=== PATIENT | male | born 1985 | race Asian ===

== ENCOUNTER 2019-01-25 19:53 | Outpatient (CLI) | payer OTHER | END 2019-01-25 19:54 | disposition critical access hospital (66) | LOC: EMS 19:53 | PROVIDERS: ATTEND Surgery | DX: M25.511 Pain in right shoulder (principal); R10.9 Unspecified abdominal pain; R09.89 Other specified symptoms and signs involving the circulatory and respiratory systems; V43.63XA Car passenger injured in collision with pick-up truck in traffic accident, initial encounter; Y92.410 Unspecified street and highway as the place of occurrence of the external cause | CPT/HCPCS: A0425; A0427 ==

== ENCOUNTER 2019-01-25 20:07 | Emergency (ER) | payer OTHER ==
[2019-01-25] MEDS ORDERED: fentaNYL 100 MCG/2 ML VIAL ONE (20:19)
[2019-01-25] MEDS ORDERED: HYDROmorphone 1 MG/ML CARPUJECT IVP STA ×3 (20:22→23:41)
[2019-01-25] MEDS ORDERED: fentaNYL 100 MCG/2 ML VIAL IVP STA ×2 (20:24→23:00)
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
[2019-01-25] MEDS ORDERED: IOVERSOL 320 100 ML VIAL IVP ONE ×2 (21:01→21:34)
[2019-01-25 21:04] LABS: BASOPHILS % (AUTO) 0.3 %; EOSINOPHILS # (AUTO) 0.1 10^3/uL (0.0-0.7); EOSINOPHILS % (AUTO) 0.7 %; HGB - HEMOGLOBIN 15.3 g/dL (14.0-18.0); LYMPHOCYTES # (AUTO) 1.7 10^3/uL (1.5-3.5); LYMPHOCYTES % (AUTO) 13.6 %; MEAN CORPUSCULAR HEMOGLOBIN 32.2 pg (27.0-31.0); MEAN CORPUSCULAR HGB CONC 34.4 g/dL (32.0-36.0); MEAN CORPUSCULAR VOLUME 93.7 fL (80.0-94.0); MONOCYTES # (AUTO) 0.4 10^3/uL (0.0-1.0); MONOCYTES % (AUTO) 3.3 %; NEUTROPHILS # (AUTO) 10.2 10^3/uL (1.5-6.6); NEUTROPHILS % (AUTO) 82.1 %; PLT - PLATELET COUNT 175 10^3/uL (130-450); RED BLOOD COUNT 4.75 10^6/uL (4.70-6.10); RED CELL DISTRIBUTION WIDTH 13.5 % (12.0-15.0); WHITE BLOOD COUNT 12.4 x10^3/uL (4.8-10.8)
[2019-01-25 21:08] LABS: INR 1.1 (0.8-1.2); PT - PROTHROMBIN TIME 12.3 secs (9.9-12.6)
[2019-01-25 21:15] LABS: ALBUMIN 4.8 g/dL (3.2-5.5); ALBUMIN/GLOBULIN RATIO 1.6 (1.0-2.2); ALKALINE PHOSPHATASE 56 IU/L (42-121); ALT ALANINE AMINOTRANSFERASE 170 IU/L (10-60); AST ASPARTATE AMINOTRANSFERASE 165 IU/L (10-42); BILIRUBIN,TOTAL 0.6 mg/dL (0.2-1.0); BUN - BLOOD UREA NITROGEN 21 mg/dL (6-20); CALCIUM 9.3 mg/dL (8.5-10.3); CARBON DIOXIDE - CO2 24 mmol/L (21-32); CHLORIDE 99 mmol/L (101-111); CREATININE 1.1 mg/dL (0.6-1.2); GFR - MDRD 78 (>89); GLUCOSE 129 mg/dL (70-100); LIPASE 40 U/L (22-51); PARTIAL THROMBOPLASTIN TIME 27.3 secs (24.9-33.3); SODIUM 136 mmol/L (135-145); TOTAL PROTEIN 7.8 g/dL (6.7-8.2)
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
[2019-01-25] MEDS ORDERED: KETAMINE 500 MG/10 ML VIAL ONE (21:50)
[2019-01-25] MEDS ORDERED: LIDOCAINE 1%-EPI 1:100000 30 ML MDV ONE (21:54)
[2019-01-25] MEDS ORDERED: KETAMINE 500 MG/10 ML VIAL IVP ONE (22:21)
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
[2019-01-25] MEDS ORDERED: HYDROmorphone 1 MG/ML CARPUJECT IM STA (23:00)
[2019-01-25] MEDS ORDERED: KETAMINE 500 MG/10 ML VIAL IVP STA (23:01)
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
[2019-01-25 23:37] VITALS: BP 131/81
[2019-01-25 23:57] LABS: MUDS CUTOFF CONCENTRATIONS CUTOFF CONC BELOW:
[2019-01-25] MEDS ORDERED: SODIUM CHLORIDE 0.9% 2,000 ML IV ONE (23:59)
[2019-01-26 00:02] LABS: BILIRUBIN,URINE NEGATIVE (NEGATIVE); GLUCOSE, URINE (UA) NEGATIVE (NEGATIVE); KETONES,URINE (UA) NEGATIVE (NEGATIVE); LEUKOCYTE ESTERASE, URINE NEGATIVE (NEGATIVE); NITRITE,URINE NEGATIVE (NEGATIVE); OCCULT BLOOD,URINE MODERATE (NEGATIVE); PH,URINE 5.5 PH (5.0-7.5); PROTEIN,URINE NEGATIVE (NEGATIVE); UROBILINOGEN,URINE 0.2 (NORMAL) E.U./dL (NORMAL)
[2019-01-26 00:27] LABS: CLARITY,URINE CLEAR (CLEAR)
[2019-01-26 00:28] LABS: AMPHETAMINE SCREEN,URINE NEGATIVE (NEGATIVE); BACTERIA,URINE None Seen /HPF (None Seen); BENZODIAZEPINES SCREEN, URINE NEGATIVE (NEGATIVE); COCAINE SCREEN URINE NEGATIVE (NEGATIVE); METHADONE SCREEN, URINE NEGATIVE (NEGATIVE); METHAMPHETAMINES SCREEN, URINE NEGATIVE (NEGATIVE); OPIATE SCREEN, URINE NEGATIVE (NEGATIVE); OXYCODONE SCREEN, URINE NEGATIVE (NEGATIVE); PROPOXYPHENE SCREEN, URINE NEGATIVE (NEGATIVE); SQUAMOUS EPITHELIAL CELL,UR RARE Squamous (<= Few); TRICYCLIC ANTIDEPRESSANT,URINE NEGATIVE (NEGATIVE)
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
== END 2019-01-26 00:17 | disposition short-term general hospital (02) ==
LOC: ED 20:07
DX: S27.0XXA Traumatic pneumothorax, initial encounter (principal); S22.41XA Multiple fractures of ribs, right side, initial encounter for closed fracture; S27.321A Contusion of lung, unilateral, initial encounter; S42.024A Nondisplaced fracture of shaft of right clavicle, initial encounter for closed fracture; M54.2 Cervicalgia; V43.62XA Car passenger injured in collision with other type car in traffic accident, initial encounter; F17.200 Nicotine dependence, unspecified, uncomplicated
CPT/HCPCS: 32551; 36415; 51702; 70450; 71045; 71260; 72125; 72128; 72131; 72170; 74177; 80053; 80320; 81001; 83690; 85025; 85610; 85730; 86850; 86900; 86901; 96372; 96374; 96376; 99291; J1170; Q9967; 80306; 81003; 87086; 99285